=== PATIENT | female | born 1940 | race Two or more races ===

== ENCOUNTER 2018-01-30 23:29 | Inpatient (IN) | payer MEDICARE, MEDICAID ==
[~2018-01-30] VITALS: Ht 162.6 cm; Wt 59.9 kg
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
--- NOTE | 2018-01-31 | NUR ---
RESTING IN EMT GURNEY WITH NO S/S OF DISTRESS. RESP EVEN AND UNLABORED.
[2018-01-31 00:16] LABS: BASOPHILS # (AUTO) 0.1 /CMM (0.0-0.2); BASOPHILS % (AUTO) 0.7 % (0.0-2.0); EOSINOPHILS # (AUTO) 0.1 /CMM (0.0-0.7); EOSINOPHILS % (AUTO) 1.8 % (0.0-6.0); HEMATOCRIT 32 % (33-45); HEMOGLOBIN 10.8 g/dL (11.5-14.8); LYMPHOCYTES # (AUTO) 2.9 /CMM (0.8-4.8); LYMPHOCYTES % (AUTO) 41.6 % (20.0-44.0); MEAN CORPUSCULAR HEMOGLOBIN 30 PG (26.0-33.0); MEAN CORPUSCULAR HGB CONC 34 g/dl (31.0-36.0); MEAN CORPUSCULAR VOLUME 88 fL (82-100); MONOCYTES # (AUTO) 0.6 /CMM (0.1-1.30); NEUTROPHILS # (AUTO) 3.2 /CMM (1.8-8.9); NEUTROPHILS % (AUTO) 46.9 % (43.0-81.0); PLATELET COUNT (AUTO) 199 /CMM (150-450); RED BLOOD CELL COUNT(AUTO) 3.63 MIL/uL (4.0-5.2); WHITE BLOOD COUNT (AUTO) 6.9 K/uL (4.3-11.0)
[2018-01-31 00:47] LABS: CALCIUM, SERUM 8.6 mg/dL (8.5-10.1); CARBON DIOXIDE 26 mmol/L (21-32); CHLORIDE 106 mmol/L (98-107); GLUCOSE 119 mg/dL (74-106); POTASSIUM 3.5 mmol/L (3.5-5.1); SODIUM SERUM 143 mmol/L (136-145); UREA NITROGEN, BLOOD 21 mg/dL (7-18)
[2018-01-31 00:56] LABS: ACETAMINOPHEN 1 ug/ml (10-30); ALANINE AMINOTRANSFERASE 17 U/L (12-78); ALBUMIN 3.1 g/dL (3.4-5.0); ALCOHOL, BLOOD < 3 mg/dL (0-0); ALKALINE PHOSPHATASE 83 U/L (46-116); ASPARTATE AMINOTRANSFERASE 17 U/L (15-37); BILIRUBIN,DIRECT 0.1 mg/dL (0.0-0.2); BILIRUBIN,TOTAL 0.3 mg/dL (0.2-1.0); TOTAL PROTEIN, SERUM 6.4 g/dL (6.4-8.2)
[2018-01-31 01:02] LABS: SALICYLATE 1.3 mg/dL (2.8-20.0)
--- NOTE | 2018-01-31 01:25 | NUR ---
REPORT GIVEN TO HUGO/GPS.
[2018-01-31 02:14] LABS: APPEARANCE,URINE CLEAR (CLEAR); BILIRUBIN,URINE NEGATIVE (NEGATIVE); BLOOD, URINE TRACE Ery/uL (NEGATIVE); COLOR,URINE YELLOW (YELLOW); KETONES,URINE NEGATIVE (NEGATIVE); LEUKOCYTE ESTERASE ,URINE TRACE (NEGATIVE); NITRITE, URINE POSITIVE (NEGATIVE); PROTEIN,URINE NEGATIVE (NEGATIVE); UGLUCOSE NEGATIVE (NEGATIVE); UROBILINOGEN,URINE 0.2 EU/dL (0.2)
[2018-01-31 02:15] VITALS: BP 150/80
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
[2018-01-31 02:23] LABS: BACTERIA,URINE Few /HPF (None Seen); SQUAMOUS EPITHELIAL CELL,UR Rare /HPF (None Seen)
[2018-01-31] MEDS ORDERED: NITROFURANTOIN/NITROFURAN MAC 100 MG CAPSULE PO SCH (03:00)
[2018-01-31] MEDS ORDERED: MAGNESIUM HYDROXIDE 30 ML UDC PO PRN (03:30)
[2018-01-31] MEDS ORDERED: NITROFURANTOIN/NITROFURAN MAC 100 MG CAPSULE PO ONE (03:30)
[2018-01-31] MEDS ORDERED: ACETAMINOPHEN 325 MG TABLET PO PRN (03:30)
[2018-01-31] MEDS ORDERED: ZOLPIDEM TARTRATE 5 MG TABLET PO PRN (03:30)
[2018-01-31] MEDS ORDERED: MAG HYDROX/AL HYDROX/SIMETH 30 ML UDC PO PRN (03:30)
[2018-01-31 08:00] VITALS: BP 152/90
--- NOTE | 2018-01-31 09:00 | NUR ---
GPS/RN MED RECON NURSE REMINGTON CALLED PATIENTS DAUGHTER TWICE IN ATTEMPTS TO FIND OUT INFORMATION REGARDING PAST MEDICAL HISTORY AND MEDICATION. LEFT MESSAGE, AWAITING CALLBACK.
[2018-01-31] MEDS: QUETIAPINE FUMARATE 25 MG TABLET PO SCH ×2 (12:17→16:19)
--- NOTE | 2018-01-31 14:28 | NUR ---
Initial discharge note: Per pt. she lives at home with her daughter [address], [place] [address]. ([phone]). call worker attempted to contact patient's daughter Kamila Grace ([phone]), However, she was unavailable. call worker left her a detailed message with her contact information. call worker will help form a safe and proper discharge.
[2018-01-31 16:03] VITALS: BP 146/81
--- NOTE | 2018-01-31 16:13 | NUR ---
picking table worker spoke to patient's daughter Kamila Grace ([phone]) who stated that patient has gotten increasingly worse and she wants the doctor to look at her feet, her knees, thyroid, and her memory to see if she has dementia. Patient's daughter became tearful on the phone. Patient's daughter also stated that she is not sure if patient can return home as she is not always there to take care of her. Patient's daughter stated that patient may need placement. picking table worker will continue to follow-up with patient's daughter regarding placement.
[2018-01-31 20:03] VITALS: BP 133/57
[2018-02-01 08:00] VITALS: BP 151/78
[2018-02-01] MEDS: QUETIAPINE FUMARATE 25 MG TABLET PO SCH ×3 (08:32→09:00)
[2018-02-01] MEDS ORDERED: ESCITALOPRAM OXALATE (10 MG) 10 MG TABLET PO SCH (09:00)
[2018-02-01 09:35] LABS: CHOLESTEROL 177 mg/dL (<200); HDL CHOLESTEROL 40 mg/dL (40-60); LDL 119 mg/dL (0-99); TRIGLYCERIDES 128 mg/dL (30-150)
[2018-02-01 15:43] LABS: THYROID STIMULATING HORMONE 3.039 uIU/mL (0.358-3.74)
[2018-02-01 16:03] VITALS: BP 154/86
--- NOTE | 2018-02-01 17:22 | NUR ---
RN NOTE :PATIENT REFUSED ALL MEDS ,ENCOURAGE STILL REFUSED .
[2018-02-01 19:51] VITALS: BP 147/79
[2018-02-02 08:00] VITALS: BP 140/90
[2018-02-02] MEDS: QUETIAPINE FUMARATE 25 MG TABLET PO SCH ×2 (08:42→21:22)
[2018-02-02 16:00] VITALS: BP 127/80
[2018-02-02 20:00] VITALS: BP 143/63
--- NOTE | 2018-02-02 21:20 | NUR ---
02/02/2018 @ 2123, ATIVAN 0.5 MG TAB 1 PO GIVEN FOR ANXIETY. PATIENT COOPERATIVE, TOOK HER MEDS.
[2018-02-02] MEDS: LORAZEPAM 0.5 MG TABLET PO PRN (21:23)
[2018-02-03 08:00] VITALS: BP 154/76
[2018-02-03] MEDS: NITROFURANTOIN/NITROFURAN MAC 100 MG CAPSULE PO SCH ×2 (11:31→20:26)
[2018-02-03 16:00] VITALS: BP 112/76
[2018-02-03 20:00] VITALS: BP 124/65
[2018-02-03] MEDS: QUETIAPINE FUMARATE 25 MG TABLET PO SCH (21:06)
[2018-02-04 08:00] VITALS: BP 141/93
[2018-02-04] MEDS: NITROFURANTOIN/NITROFURAN MAC 100 MG CAPSULE PO SCH ×2 (09:07→21:43)
[2018-02-04 16:00] VITALS: BP 153/89
[2018-02-04 16:07] VITALS: BP 153/89
[2018-02-04 20:00] VITALS: BP 131/85
[2018-02-04] MEDS: QUETIAPINE FUMARATE 25 MG TABLET PO SCH (21:43)
[2018-02-05 08:00] VITALS: BP 134/72
[2018-02-05] MEDS: NITROFURANTOIN/NITROFURAN MAC 100 MG CAPSULE PO SCH ×2 (08:01→21:30)
[2018-02-05 16:00] VITALS: BP 146/92
[2018-02-05] MEDS: LORAZEPAM 0.5 MG TABLET PO PRN (19:40)
[2018-02-05 20:05] VITALS: BP 142/64
[2018-02-05] MEDS: QUETIAPINE FUMARATE 25 MG TABLET PO SCH (21:30)
[2018-02-06 08:00] VITALS: BP_SYST 128; BP_SYST 142; BP_DIAS 70; BP_DIAS 73
[2018-02-06] MEDS: NITROFURANTOIN/NITROFURAN MAC 100 MG CAPSULE PO SCH ×2 (08:14→21:34)
--- NOTE | 2018-02-06 11:39 | NUR ---
family support worker faxed inquiry to [facility] ([phone]). family support worker will follow-up.
--- NOTE | 2018-02-06 14:09 | NUR ---
Per Duong, from facility pt. has been accepted to [facility] ([phone]). bed worker will follow-up.
[2018-02-06 16:00] VITALS: BP 139/77
[2018-02-06 19:35] VITALS: BP 152/90
[2018-02-06] MEDS: QUETIAPINE FUMARATE 25 MG TABLET PO SCH (21:35)
[2018-02-07 08:00] VITALS: BP 146/75
[2018-02-07] MEDS: NITROFURANTOIN/NITROFURAN MAC 100 MG CAPSULE PO SCH ×2 (08:15→21:37)
[2018-02-07 16:00] VITALS: BP 119/72
[2018-02-07 20:00] VITALS: BP 146/93
[2018-02-07] MEDS: QUETIAPINE FUMARATE 25 MG TABLET PO SCH (21:38)
[2018-02-08 07:26] LABS: CALCIUM, SERUM 8.5 mg/dL (8.5-10.1); CARBON DIOXIDE 27 mmol/L (21-32); CHLORIDE 106 mmol/L (98-107); CREATININE 0.8 mg/dL (0.6-1.3); GLUCOSE 78 mg/dL (74-106); POTASSIUM 4.1 mmol/L (3.5-5.1); SODIUM SERUM 143 mmol/L (136-145); UREA NITROGEN, BLOOD 20 mg/dL (7-18)
[2018-02-08 07:27] LABS: BASOPHILS # (AUTO) 0.1 /CMM (0.0-0.2); EOSINOPHILS # (AUTO) 0.2 /CMM (0.0-0.7); HEMATOCRIT 35 % (33-45); HEMOGLOBIN 11.9 g/dL (11.5-14.8); LYMPHOCYTES # (AUTO) 3.5 /CMM (0.8-4.8); LYMPHOCYTES % (AUTO) 56.3 % (20.0-44.0); MEAN CORPUSCULAR HEMOGLOBIN 30 PG (26.0-33.0); MEAN CORPUSCULAR HGB CONC 34 g/dl (31.0-36.0); MEAN CORPUSCULAR VOLUME 88 fL (82-100); MONOCYTES # (AUTO) 0.5 /CMM (0.1-1.30); MONOCYTES % (AUTO) 8.4 % (2.0-12.0); NEUTROPHILS # (AUTO) 1.9 /CMM (1.8-8.9); NEUTROPHILS % (AUTO) 31.3 % (43.0-81.0); PLATELET COUNT (AUTO) 174 /CMM (150-450); RDW COEFFICIENT OF VARIATION 13.7 (11.5-15.0); RED BLOOD CELL COUNT(AUTO) 3.99 MIL/uL (4.0-5.2); WHITE BLOOD COUNT (AUTO) 6.2 K/uL (4.3-11.0)
[2018-02-08 08:00] VITALS: BP 152/87
[2018-02-08] MEDS: NITROFURANTOIN/NITROFURAN MAC 100 MG CAPSULE PO SCH ×2 (08:51→21:15)
[2018-02-08 16:00] VITALS: BP 116/84
[2018-02-08] MEDS: QUETIAPINE FUMARATE 25 MG TABLET PO SCH (21:15)
[2018-02-08] MEDS: LORAZEPAM 0.5 MG TABLET PO PRN (21:15)
--- NOTE | 2018-02-08 21:16 | NUR ---
PATIENT VERY ANXIOUS, LORAZEPAM 0.5 MG TAB 1 PO GIVEN.
[2018-02-09 08:03] VITALS: BP 133/79
[2018-02-09] MEDS: NITROFURANTOIN/NITROFURAN MAC 100 MG CAPSULE PO SCH (08:08)
--- NOTE | 2018-02-09 09:03 | NUR ---
DR. FULTON TO D/C HOLD AND D/C TO [facility] AND TO CONTINUE SAME MEDS INCLUDING PRN AND TO FOLLOW UP WITH PSYCH AND MEDICAL DOCTORS.
--- NOTE | 2018-02-09 14:40 | NUR ---
GPS/RN PATIENT CLEARED FOR DISCHARGE TO [facility] BY DR FULTON AND DR GARCIA. MEDICATIONS RECONCILED BY BOTH DR'S, MEDICATIONS, EXIT CARE AND AFTER CARE PLAN EXPLAINED TO PATIENT, VERBALIZED UNDERSTANDING. BELONGINGS AND VALUABLES, INCLUDING $121.00 [place] RETURNED TO PATIENT, BELONGINGS SHEET SIGNED BY PATIENT, RN AND OVEREDGE SEWER AND [place] COUNTED IN FRONT OF AMBULANCE TRANSPORT. PER CUSTOMER ADVOCATE KERRY, PATIENTS DAUGHTER JUAN IS AWARE OF DISCHARGE TO FACILITY. SKIN INTACT, PATIENT DENIES SI/HI/AH UPON DISCHARGE, PSYCHIATRIC TREATMENT PLANS MET, LEFT UNIT CALM, COOPERATIVE, NO DISTRESS NOTED WITH AMBULANCE TRANSPORT AT SIDE.
--- NOTE | 2018-02-09 14:43 | NUR ---
Discharge Note: Patient will be discharged to [facility] [address] [place] [address]. . Via med response. Patient's daughter Kamila Grace ([phone]) was notified and was agreeable with the discharge plan. Patient appears calm and cooperative. Patient denies and suicidal and homicidal ideations. Patient will follow-up with evidence custodian Dr. Whitman ([phone]), at the facility. Patient will follow-up with Psychiatrist Dr. Samaniego ([phone]), at the facility. Facilitated info to IDT team who are in agreement with discharge arrangement. The multidisciplinary exitcare form was done, printed, signed, and given to the patient.
== END 2018-02-09 14:40 | DRG 885 ==
LOC: ER 23:31 → GPS 01-31 01:43
PROVIDERS: ADMIT Psychiatry & Neurology Psychiatry; ATTEND Internal Medicine
DX: F29 Unspecified psychosis not due to a substance or known physiological condition (principal); N17.0 Acute kidney failure with tubular necrosis; N39.0 Urinary tract infection, site not specified; F03.91 Unspecified dementia, unspecified severity, with behavioral disturbance; D63.8 Anemia in other chronic diseases classified elsewhere; B96.20 Unspecified Escherichia coli [E. coli] as the cause of diseases classified elsewhere; F31.9 Bipolar disorder, unspecified; Z79.899 Other long term (current) drug therapy
CPT/HCPCS: 36415; 80048-TC; 80061-TC; 80076-TC; 80305; 81000-TC; 82565-TC; 84439-TC; 84443-TC; 84481; 85025-TC; 87081-TC; 87086-TC; 87186-TC; A4606; G0480; Z7610